=== PATIENT | male | born 1995 | race Caucasian/White ===

== ENCOUNTER 2018-08-18 02:17 | Emergency (ER) | payer SELFPAY ==
[~2018-08-18] VITALS: Ht 177.8 cm; Wt 59.0 kg
[2018-08-18 02:30] VITALS: BP 149/89
[2018-08-18] MEDS ORDERED: SODIUM CHLORIDE 0.9% 1,000 ML IV ONE (02:37)
== END 2018-08-18 02:45 | disposition left against medical advice (07) ==
LOC: ER 02:17
DX: F41.9 Anxiety disorder, unspecified (principal); R07.89 Other chest pain
CPT/HCPCS: 99284; J7030

== ENCOUNTER 2020-04-16 06:37 | Emergency (ER) | payer MEDICAID ==
[~2020-04-16] VITALS: Ht 175.3 cm; Wt 82.0 kg
[2020-04-16] MEDS ORDERED: ONDANSETRON HCL 4MG/2ML INJ IV STA (07:34)
[2020-04-16] MEDS ORDERED: FAMOTIDINE 20MG/2ML VIAL IV STA (07:34)
[2020-04-16] MEDS ORDERED: MORPHINE SULFATE 4 MG/ML CPJ (NOT FOR IM USE) IV STA (07:34)
[2020-04-16] MEDS ORDERED: SODIUM CHLORIDE 0.9% 1,000 ML IV ONE (07:45)
[2020-04-16 07:59] LABS: BASOPHILS % 0.7 % (0.0-2.0); EOSINOPHILS % 0.4 % (0.0-5.0); HEMATOCRIT. 44.8 % (42.0-52.0); HEMOGLOBIN. 15.4 g/dL (14.0-18.0); LYMPHOCYTES % 12.3 % (20.0-50.0); MEAN CORPUSCULAR HEMOGLOBIN 30.3 pg (28.0-32.0); MEAN CORPUSCULAR VOLUME 88.2 fL (80.0-94.0); MEAN PLATELET VOLUME 8.4 fl (7.4-10.4); MONOCYTES % 4.5 % (2.0-8.0); NEUTROPHILS % 82.1 % (40.0-76.0); PLATELET 210 x1000/uL (130-400); RED BLOOD CELL COUNT 5.08 mill/uL (4.7-6.1); RED CELL DISTRIBUTION WIDTH 13.4 % (11.6-14.6)
[2020-04-16 08:04] LABS: CHLORIDE 106 mEq/L (98-107)
[2020-04-16 09:10] LABS: CLARITY URINE TURBID (CLEAR); COLOR URINE YELLOW (YELLOW); KETONES URINE NEGATIVE (NEGATIVE); LEUKOCYTE ESTERASE URINE NEGATIVE (NEGATIVE); NITRITE URINE NEGATIVE (NEGATIVE); OCCULT BLOOD URINE NEGATIVE (NEGATIVE); PROTEIN URINE 1+ (NEGATIVE); SPECIFIC GRAVITY URINE 1.018 (1.005-1.030); UROBILINOGEN URINE 0.2 E.U./dL (0.2-1.0)
[2020-04-16] MEDS ORDERED: IOHEXOL-300 100 ML BOTTLE ONE (10:05)
[2020-04-16] MEDS ORDERED: IBUPROFEN 400MG TABLET PO ONE (11:15)
[2020-04-16 11:20] VITALS: BP 120/68
== END 2020-04-16 11:20 | disposition home or self-care (01) ==
LOC: ER 07:30
DX: K29.70 Gastritis, unspecified, without bleeding (principal); F12.10 Cannabis abuse, uncomplicated
CPT/HCPCS: 36415; 71045; 74177; 80053; 81003; 83690; 84484; 85025; 93005; 96361; 96374; 96375; 99285; J2270; J2405; J3490; J7030; Q9967